=== PATIENT | female | born 1980 | race Caucasian/White ===

== ENCOUNTER 2018-05-18 21:22 | Emergency (ER) | payer OTHER, SELFPAY ==
[2018-05-18 21:26] VITALS: BP 118/81; PULSE 91; RESP 18; TEMP 37.4; O2SAT 99; BMI 28.9
[2018-05-18 22:23] LABS: Add Manual Diff / Slide Review NO; Basophils Percent Auto 0.8 % (0-2); Eosinophils Percent Auto 0.1 % (2-4); Hematocrit 38.7 % (36-46); Hemoglobin 13.2 g/dL (12.0-16.0); Lymphocytes Percent Auto 11.3 % (25-40); Mean Corpuscular HGB Conc 34.2 % (30-36); Mean Corpuscular Hemoglobin 29.9 PG (26-34); Mean Corpuscular Volume 87.4 fL (80-100); Monocytes Percent Auto 8.3 % (3-14); Neutrophils Absolute Auto 6100 /uL (3000-5900); Neutrophils Percent Auto 79.5 % (50-75); Platelet Count 328 X10^3/uL (150-400); Red Blood Cell Count 4.43 X10^6/uL (4.0-5.2); Red Cell Distribution Width 12.8 % (11.6-14.8); White Blood Cell Count 7.6 X10^3/uL (4.5-11.0)
[2018-05-18] MEDS: diphenhydrAMINE 50 MG/ML VIAL 25 MG IV (22:24)
[2018-05-18] MEDS: DEXAMETHASONE 10 MG/ML VIAL IV (22:24)
[2018-05-18] MEDS: KETOROLAC 60 MG/2 ML VIAL 15 MG IV (22:24)
[2018-05-18 22:25] VITALS: BP 118/81; PULSE 91
[2018-05-18] MEDS: PROCHLORPERAZINE 10 MG/2 ML VIAL IV (22:25)
[2018-05-18] MEDS: SODIUM CHLORIDE 0.9% 1,000 ML 1000 ML IV (22:26)
[2018-05-18 22:37] LABS: BUN Creatinine Ratio 18.3 (6-22); Blood Urea Nitrogen 11 mg/dL (7-17); Calcium 9.4 mg/dL (8.4-10.2); Carbon Dioxide 26 mmol/L (22-32); Chloride 103 mmol/L (98-107); Estimated Glomerular Filt Rate > 60.0 mL/min (>60); Glucose 115 mg/dL (70-100); HEMOLYSIS < 15 (0-50); Potassium 3.9 mmol/L (3.4-5.1); Sodium 142 mmol/L (137-145)
[2018-05-18 23:00] LABS: Ketones (Beta-Hydroxybutyrate) 0.46 mmol/L (<0.27)
[2018-05-18 23:11] LABS: C-Reactive Protein Quant 12.8 mg/dL (<1.0)
[2018-05-18 23:28] VITALS: BP 113/71; PULSE 73; RESP 18; TEMP 36.9; O2SAT 97
[2018-05-19] MEDS: SODIUM CHLORIDE 0.9% 1,000 ML 1000 ML IV (00:18)
--- NOTE | 2018-05-19 00:28 | ED_ITS ---
HPI - Headache General Chief Complaint: Headache Stated Complaint: MIGRAINE Time Seen by Provider: 05/18/18 21:27 Source: patient and family Mode of arrival: ambulatory Limitations: no limitations History of Present Illness HPI Narrative: 38F with history of migraine presents with history of N/V for a few days and now has muscle aches and a severe headache. She denies fever at any point and denies headache. She has had no recent travel and denies any injury over exposure to ill persons. She denies use of antibiotics or exposure to bad food. She has had a poor appetite and therefore he has eaten very little and had little to drink over the past few days. This is her 3rd visit in the past few days under the circumstances. She 1st was seen by the walk-in clinic and was given the diagnosis of a nonspecific viral syndrome and encouraged to take Zofran and drink fluids. She followed up with her primary care provider whom quickly sent her to the emergency department at [facility]. She had a very thorough evaluation including IV fluids, lab work, head CT and lumbar puncture. Patient felt a bit better after therapies there and was sent home. Over the course of the day today her headache started getting worse and she took hydrocodone. Related Data Home Medications Medication Instructions Recorded Confirmed rizatriptan 10 mg tablet 10 mg PO ONCE 05/16/18 05/18/18 sumatriptan succinate PO .prn 05/16/18 05/16/18 Previous Rx's Medication Instructions Recorded naproxen [Naprosyn] 500 mg PO BID #60 tab 06/18/17 ondansetron 8 mg disintegrating 8 mg PO BID PRN #14 tab 05/16/18 tablet metoclopramide HCl [Reglan] 10 mg PO Q6H PRN #10 tab 05/19/18 Allergies Allergy/AdvReac Type Severity Reaction Status Date / Time No Known Allergies Allergy Uncoded 02/06/18 11:46 Review of Systems Review of Systems All systems reviewed & are unremarkable except as noted in HPI and below Constitutional Reports chills, Denies fever(s), Reports headache(s), Denies lethargy and Denies weakness Eyes Denies change in vision, Denies eye discharge, Denies irritation and Denies loss of vision ENT Ears, Nose, Mouth, and Throat: Denies change in voice, Reports headache(s), Denies neck pain and Denies sore throat Cardiovascular Denies chest pain, Denies irregular heart rhythm, Denies lightheadedness, Denies palpitations, Denies dyspnea, Denies dyspnea on exertion and Denies orthopnea Respiratory Denies cough, Denies dyspnea, Denies dyspnea on exertion and Denies wheezing Gastrointestinal Gastrointestinal: Denies abdominal pain, Denies change in bowel habits, Reports diarrhea, Reports nausea and Reports vomiting Genitourinary Denies hematuria, Denies flank pain, Denies urinary incontinence and Denies urinary urgency Musculoskeletal Denies neck pain Integumentary/Breasts Denies pruritus, Denies erythema, Denies rash and Denies wounds Neurologic Denies confusion, Reports headache(s), Denies loss of vision and Denies weakness Psychiatric Denies anxiety, Denies confusion, Denies depression, Denies homicidal ideation and Denies suicidal ideation Endocrine Denies palpitations Hematologic/Lymphatic Denies easy bruising Allergic/Immunologic Denies wheezing PFSH Social History Smoking Status: Never smoker Exam Narrative Exam Narrative: 38-year-old female obviously in pain, resting in a dark room Initial Vital Signs Initial Vital Signs: Vital Signs Temperature 99.4 F 05/18/18 21:26 Pulse Rate 91 H 05/18/18 21:26 Respiratory Rate 18 05/18/18 21:26 Blood Pressure 118/81 H 05/18/18 21:26 Pulse Oximetry 99 05/18/18 21:26 Const General: cooperative, well developed and in distress Nutritional Appearance: well nourished Orientation: alert, awake, oriented x3 and not confused [facility] Head: normocephalic and atraumatic Ears: external ears normal and TM's normal bilaterally Nose: external nose normal and No nasal discharge Face and sinus: sinuses nontender, face symmetric, no sinus tenderness and No dry mucous membranes Mouth: oral mucosae normal and moist mucous membranes Teeth and gingiva: dentition normal Throat: tonsils normal and uvula midline Eyes General: appearance normal, both eyes and all related structures Eyelids: eyelids normal Conjunctivae: conjunctivae normal Sclera: sclerae normal Pupils: PERRL EOM: EOM intact bilaterally Neck Neck: normal visual inspection, trachea midline, No lymphadenopathy, No midline deformity and No JVD Lymphatic: No lymphedema Resp Effort & Inspection: normal respiratory effort, able to speak in complete sentences, no respiratory distress and no use of accessory muscles Auscultation: clear to auscultation bilaterally, no rales, no rhonchi and no wheezes Cardio Rate: regular rate Rhythm: regular rhythm Heart Sounds: no click, no gallops, no murmurs and no rubs Pulses: normal peripheral pulses GI Inspection: non-distended Palpation: soft, no hepatosplenomegaly, No guarding, No pulsatile mass and No tender Auscultation: normal bowel sounds Back/Spine/Pelvis Back: No CVA tenderness Cervical Spine: cervical ROM normal and No pain with cervical ROM Thoracic/Lumbar Spine: thoracic and lumbar spine normal to inspection Skin General: no rashes or lesions noted, No jaundice and No petechiae Neuro General: alert, oriented x3, gait normal and no focal motor deficits Cranial Nerves: CN's II-XI intact bilaterally Speech: speech normal Gait: normal gait Motor: muscle tone normal throughout Sensory Exam: no sensory deficits noted Extrem General: full ROM, no clubbing, cyanosis or edema, no pedal edema and no calf tenderness Psych Appearance: well kempt Mental Status: mental status grossly normal Attitude: cooperative Thought Content: normal and suicidality Judgment: judgment good Course Orders Ordered: ED Orders 05/18/18 22:18 Basic Metabolic Panel Stat C-Reactive Protein Quant Stat Complete Blood Count AUTO DIFF Stat Ketones (Beta-Hydroxybutyrate) Stat Procalcitonin Stat 05/19/18 02:00 Influenza A and B by PCR Rapid Stat Discontinued Medications Dexamethasone (Decadron) 10 mg IV NOW ONE Stop: 05/18/18 22:02 Last Admin: 05/18/18 22:24 Dose: 10 mg Dihydroergotamine Mesylate (Dhe 45) 1 mg IV NOW ONE Stop: 05/19/18 00:35 Dihydroergotamine Mesylate (Dhe 45) 1 mg IV NOW ONE Stop: 05/19/18 00:52 Last Admin: 05/19/18 00:56 Dose: 1 mg Diphenhydramine HCl (Benadryl) 25 mg IV NOW ONE Stop: 05/18/18 22:02 Last Admin: 05/18/18 22:24 Dose: 25 mg Sodium Chloride (Normal Saline 0.9%) 1,000 mls @ 1,000 mls/hr IV BOLUS ONE Stop: 05/18/18 23:00 Last Infusion: 05/18/18 23:29 Dose: 0 mls/hr Admin: 05/18/18 22:26 Dose: 1,000 mls/hr Sodium Chloride (Normal Saline 0.9%) 1,000 mls @ 1,000 mls/hr IV BOLUS ONE Stop: 05/19/18 01:03 Last Infusion: 05/19/18 02:23 Dose: 0 mls/hr Admin: 05/19/18 00:18 Dose: 1,000 mls/hr Ketorolac Tromethamine (Toradol) 15 mg IV NOW ONE Stop: 05/18/18 22:02 Last Admin: 05/18/18 22:24 Dose: 15 mg Prochlorperazine (Compazine) 10 mg IV NOW ONE Stop: 05/18/18 22:02 Last Admin: 05/18/18 22:25 Dose: 10 mg Reevaluation(s) Reevaluation #1: patient has resolution of nausea, but pain is still 6/10. She is somnalent, but easily arousable. Will await her to wake up a bit before administering more meds. Reevaluation #2: Patient now asymptomatic after DHE, she is requesting discharge home, I asked that we wait a few more minutes for the flu Consultations Consultation #1: Labs and imaging sent over from [facility]. Head CT is unremarkable. CSF shows a traumatic tap with 22,000 RBCs and 45 white cells, CSF protein 43. No organisms seen on Gram stain. Culture pending. Vital Signs - 8 hr 05/18/18 21:26 05/18/18 22:25 05/18/18 23:28 Temperature 99.4 F 98.5 F Pulse Rate 91 H 91 H 73 Respiratory Rate 18 18 Blood Pressure 118/81 H 118/81 H Blood Pressure [Left Arm] 113/71 Pulse Oximetry 99 97 05/19/18 02:04 Temperature Pulse Rate 65 Respiratory Rate 18 Blood Pressure Blood Pressure [Left Arm] 114/64 Pulse Oximetry 98 MDM - Headache Lab Data Result diagrams: 05/18/18 22:18 05/18/18 22:18 Lab Results 05/18/18 05/18/18 05/18/18 Range/Units 22:18 22:18 22:18 WBC 7.6 (4.5-11.0) X10^3/uL RBC 4.43 (4.0-5.2) X10^6/uL Hgb 13.2 (12.0-16.0) g/dL Hct 38.7 (36-46) % MCV 87.4 (80-100) fL MCH 29.9 (26-34) PG MCHC 34.2 (30-36) % RDW 12.8 (11.6-14.8) % Plt Count 328 (150-400) X10^3/uL Neut % (Auto) 79.5 H (50-75) % Lymph % (Auto) 11.3 L (25-40) % [place] % (Auto) 8.3 (3-14) % Eos % (Auto) 0.1 L (2-4) % Baso % (Auto) 0.8 (0-2) % Neut # (Auto) 6100 H (3492-9073) /uL Sodium 142 (137-145) mmol/L Potassium 3.9 (3.4-5.1) mmol/L Chloride 103 (98-107) mmol/L Carbon Dioxide 26 (22-32) mmol/L BUN 11 (7-17) mg/dL Creatinine 0.60 (0.52-1.04) mg/dL Estimated GFR > 60.0 (>60) mL/min BUN/Creatinine Ratio 18.3 (6-22) Glucose 115 H (70-100) mg/dL Calcium 9.4 (8.4-10.2) mg/dL C-Reactive Protein 12.8 H (<1.0) mg/dL Procalcitonin 0.10 (<0.5) ng/mL Ketones (<0.27) mmol/L 05/18/18 Range/Units 22:18 WBC (4.5-11.0) X10^3/uL RBC (4.0-5.2) X10^6/uL Hgb (12.0-16.0) g/dL Hct (36-46) % MCV (80-100) fL MCH (26-34) PG MCHC (30-36) % RDW (11.6-14.8) % Plt Count (150-400) X10^3/uL Neut % (Auto) (50-75) % Lymph % (Auto) (25-40) % [place] % (Auto) (3-14) % Eos % (Auto) (2-4) % Baso % (Auto) (0-2) % Neut # (Auto) (3405-1155) /uL Sodium (137-145) mmol/L Potassium (3.4-5.1) mmol/L Chloride (98-107) mmol/L Carbon Dioxide (22-32) mmol/L BUN (7-17) mg/dL Creatinine (0.52-1.04) mg/dL Estimated GFR (>60) mL/min BUN/Creatinine Ratio (6-22) Glucose (70-100) mg/dL Calcium (8.4-10.2) mg/dL C-Reactive Protein (<1.0) mg/dL Procalcitonin (<0.5) ng/mL Ketones 0.46 H (<0.27) mmol/L MDM Narrative Medical decision making narrative: 38-year-old female presents with headache in the aftermath of nausea and vomiting. Her headache improved yesterday after [place] migraine therapies in a very thorough workup. She returns today with worsening headache in the aftermath of a lumbar puncture last night and the administration of narcotics today. There are multiple components likely contributing to her headache including the viral syndrome causing her vomiting and diarrhea, dehydration, lumbar puncture, opioids, Discharge Plan Departure Patient Disposition: Home, Self-Care Clinical Impression: Headache, Vomiting Instructions: DI for Headache Activity Restrictions/Additional Instructions: 1. Drink plenty of fluids with frequent small sips. 2. For the next 24 hours a clear liquid diet is advised. After that please employ a brat diet which would include bananas, rice, apples, toast. 3. Please take medications as directed. 4. Please follow-up with your doctor in the next 1-2 days. Call the office for an appointment. 5. Please return to the emergency Department for any worsening or persistent symptoms, such as increasing pain or fever. Prescriptions: New metoclopramide HCl [Reglan] 10 mg tablet 10 mg PO Q6H PRN (Reason: nausea and vomiting) Qty: 10 RF: 0 No Action sumatriptan succinate PO .prn RF: 0 rizatriptan 10 mg tablet 10 mg PO ONCE RF: 0 ondansetron [Zofran ODT] 8 mg tablet,disintegrating 8 mg PO BID PRN (Reason: nausea and vomiting) Qty: 14 RF: 0 naproxen [Naprosyn] 500 MG tablet 500 mg PO BID Qty: 60 RF: 1 Stand Alone Forms: Work/School Restrictions
[2018-05-19] MEDS: DIHYDROERGOTAMINE 1 MG/ML AMPUL IV (00:56)
[2018-05-19 02:04] VITALS: BP 114/64; PULSE 65; RESP 18; O2SAT 98
[2018-05-19 02:33] VITALS: BP 117/76; PULSE 63; RESP 18; O2SAT 98
[2018-05-19 02:34] LABS: Influenza A and B by PCR Rapid Negative (Negative)
== END 2018-05-19 02:57 | disposition home or self-care (01) ==
PROVIDERS: Emergency Provider Emergency Medicine; Family Provider Family Medicine
DX: R51 Headache (principal); R11.0 Nausea
CPT/HCPCS: 36591; 80048; 82009; 84145; 85025; 86140; 87400; 96361; 96374; 96375; 96376; 99284; J0780; J1100; J1110; J1200; J1885

== ENCOUNTER → 2018-08-06 15:00 | Outpatient (CLI) | payer OTHER, SELFPAY | PROVIDERS: Family Provider Family Medicine | DX: Z23 Encounter for immunization (principal) | CPT/HCPCS: 90471; 90686 ==

== ENCOUNTER → 2019-07-24 16:37 | Outpatient (CLI) | payer OTHER, SELFPAY | DX: Z23 Encounter for immunization (principal) | CPT/HCPCS: 90471; 90686 ==

== ENCOUNTER → 2020-09-14 | Outpatient (CLI) | payer OTHER, SELFPAY | PROVIDERS: Referring Provider Internal Medicine; Visit Provider Internal Medicine | DX: Z23 Encounter for immunization (principal) | CPT/HCPCS: 90471; 90686 ==

== ENCOUNTER → 2020-09-15 09:41 | Outpatient (CLI) | payer OTHER, SELFPAY ==
[2020-09-15 11:05] LABS: COVID19 -Nasal RAPID Negative (Negative)
== END ==
PROVIDERS: Visit Provider Physician Assistant
DX: Z20.828 Contact with and (suspected) exposure to other viral communicable diseases (principal)
CPT/HCPCS: 87635

== ENCOUNTER → 2020-11-04 15:20 | Outpatient (CLI) | payer OTHER, SELFPAY ==
[2020-11-04] MEDS: COVID-19 VACC(MODERNA-1)/PF 100 MCG/0.5 ML VIAL IM (15:26)
== END ==
PROVIDERS: PCP Internal Medicine; Visit Provider Internal Medicine
DX: Z23 Encounter for immunization (principal)
CPT/HCPCS: 0011A; 91301

== ENCOUNTER → 2020-12-10 15:39 | Outpatient (CLI) | payer OTHER, SELFPAY ==
[2020-12-10] MEDS: COVID-19 VACC #2, MRNA(MOD) 100 MCG/0.5 ML VIAL IM (15:44)
== END ==
PROVIDERS: PCP Internal Medicine; Visit Provider Internal Medicine
DX: Z23 Encounter for immunization (principal)
CPT/HCPCS: 0012A; 91301

== ENCOUNTER 2020-12-16 10:37 | Emergency (ER) | payer OTHER, SELFPAY ==
[2020-12-16] VITALS (7 sets, daily range): BP systolic 110–145; BP diastolic 56–83; PULSE 60–77; RESP 16–18; TEMP 36.8; O2SAT 96–100
--- NOTE | 2020-12-16 11:13 | ED.HA ---
HPI - Headache General Chief Complaint: Headache Stated Complaint: dizzy,nausea,weird in head Time Seen by Provider: 12/16/20 10:56 Source: patient Mode of arrival: Ambulatory Limitations: no limitations History of Present Illness HPI Narrative: Patient is a 40-year-old female history of migraine headaches presenting today with dizziness lightheadedness. 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 She felt extremely dizzy flushed and lightheaded. She denies any chest pain or heart palpitations. She saw some floaters in her eyes. She does have a history of migraine she states that this does not feel like migraine headache. In fact she has a very a dull mild headache at this time she feels a little bit nauseous. The lightheadedness lasted for about 10 minutes. She did not eat breakfast today but that is normal for she has 1 cup of coffee also normal for her. She overall is feeling little bit better no longer lightheaded. MD Complaint: headache Related Data Home Medications Medication Instructions Recorded Confirmed rizatriptan 10 mg tablet 10 mg PO ONCE 05/16/18 05/18/18 sumatriptan succinate PO .prn 05/16/18 05/16/18 sumatriptan succinate [Imitrex] 50 mg PO Q2-4H PRN 12/16/20 12/16/20 Previous Rx's Medication Instructions Recorded naproxen [Naprosyn] 500 mg PO BID #60 tab 06/18/17 ondansetron 8 mg disintegrating 8 mg PO BID PRN #14 tab 05/16/18 tablet metoclopramide HCl [Reglan] 10 mg PO Q6H PRN #10 tab 05/19/18 Allergies Allergy/AdvReac Type Severity Reaction Status Date / Time No Known Allergies Allergy Verified 12/16/20 11:22 Review of Systems Review of Systems ROS Unobtainable: All systems reviewed & are unremarkable except as noted in HPI and below Constitutional Constitutional: Denies chills, Denies fever(s), Denies lethargy and Denies weakness Eyes Eyes: Denies blurry vision, Denies change in vision, Denies diplopia, Reports floaters and Denies irritation Cardiovascular Cardiovascular: Denies chest pain, Denies irregular heart rhythm, Reports lightheadedness, Denies palpitations, Denies dyspnea, Denies dyspnea on exertion and Denies orthopnea Respiratory Respiratory: Denies cough, Denies dyspnea, Denies dyspnea on exertion and Denies wheezing Gastrointestinal Gastrointestinal: Denies abdominal pain, Denies change in bowel habits, Denies diarrhea, Denies nausea and Denies vomiting Musculoskeletal Musculoskeletal: Denies abnormal gait, Denies back pain and Denies radiating pain into limb Integumentary/Breasts Skin/Breast: Denies pruritus, Denies erythema, Denies rash and Denies wounds Neurologic Neurologic: Denies abnormal gait, Denies confusion and Denies weakness Psychiatric Psychiatric: Denies anxiety, Denies confusion, Denies depression, Denies homicidal ideation and Denies suicidal ideation Endocrine Endocrine: Denies palpitations Allergic/Immunologic Allergic/Immunologic: Denies wheezing Patient History Medical History Migraine Social History Smoking Status: Never smoker Smoking Status: Never smoker alcohol intake frequency: holidays/special occasions only Substance Use Type: does not use Exam Initial Vital Signs Initial Vital Signs: Vital Signs Temperature 98.2 F 12/16/20 10:55 Pulse Rate 77 12/16/20 10:55 Respiratory Rate 16 12/16/20 10:55 Blood Pressure 145/83 H 12/16/20 10:55 Pulse Oximetry 100 12/16/20 10:55 GENERAL: Well-appearing, well-nourished and in no acute distress. HEENT: Head atraumatic,EOMI, pupils reactive, face symmetric, moist mucous membranes CARDIOVASCULAR: Regular rate and rhythm without murmurs, rubs or gallops. RESPIRATORY: Breath sounds equal bilaterally, no wheezes rales or rhonchi. ABDOMEN: Soft, nontender. Normoactive bowel sounds all 4 quadrants. No guarding or rebound. EXTREMITIES: Normal range of motion, no clubbing or edema. Neurovascularly intact NEUROLOGICAL: Alert and oriented x4.Normal gait and speech. Cranial nerves II through XII grossly intact. Good [id number], good [id number], strength equal bilaterally, no dysarthria or aphasia, sensation in tact to soft touch bilaterally, no visual changes, no facial droop SKIN: Warm, dry, no laceration, no petechiae, no rashes or lesions. Scores NIH Stroke Scale Level of Conciousness: Alert, keenly responsive Ask month/age: Answers both questions correctly. Open/close eyes, close hand: Performs both tasks correctly Best gaze horizontal: Normal Visual guan: No visual loss Facial palsy: Normal symetrical movement Left arm drift: No drift for full 10 sec Right arm drift: No drift for full 10 sec Left leg drift: No drift for full 5 sec Right leg drift: No drift for full 5 sec Limb ataxia: Absent Sensory on face/arms/legs: Normal, no sensory loss Best language: No aphasia, normal Dysarthria: Normal Extinction or inattention: No abnormality Total NIH Stroke scale score: 0 Course Orders Ordered: ED Orders 12/16/20 10:57 EKG-12 Lead Stat 12/16/20 11:31 Complete Blood Count AUTO DIFF Stat Comprehensive Metabolic Panel Stat Troponin & CK Cardiac Panel Stat Discontinued Medications Sodium Chloride (Normal Saline 0.9%) 1,000 mls @ 1,000 mls/hr IV BOLUS ONE Stop: 12/16/20 12:17 Last Infusion: 12/16/20 13:20 Dose: 0 mls/hr Documented by: Admin: 12/16/20 11:48 Dose: 1,000 mls/hr Documented by: AGATHA Ketorolac Tromethamine (Ketorolac 60 Mg/2 Ml Vial) 15 mg IV NOW ONE Stop: 12/16/20 11:19 Last Admin: 12/16/20 11:47 Dose: 15 mg Documented by: AGATHA Ondansetron HCl (Ondansetron 4 Mg/2 Ml Inj) 4 mg IV NOW ONE Stop: 12/16/20 11:19 Last Admin: 12/16/20 11:48 Dose: 4 mg Documented by: AGATHA Vital Signs Vital signs: Vital Signs - 8 hr 12/16/20 11:43 12/16/20 11:51 12/16/20 11:52 Pulse Rate 60 Pulse Rate [Orthostatic Lying] 63 Pulse Rate [Orthostatic Sitting] 60 Pulse Rate [Orthostatic Standing] 63 Respiratory Rate 18 Blood Pressure 114/63 Blood Pressure [Orthostatic Lying] 112/65 Blood Pressure [Orthostatic Sitting] 127/69 Blood Pressure [Orthostatic Standing] 120/78 Pulse Oximetry 99 12/16/20 12:00 12/16/20 12:30 12/16/20 13:00 Pulse Rate 62 64 65 Pulse Rate [Orthostatic Lying] Pulse Rate [Orthostatic Sitting] Pulse Rate [Orthostatic Standing] Respiratory Rate 17 17 18 Blood Pressure 110/58 L 112/59 L 111/56 L Blood Pressure [Orthostatic Lying] Blood Pressure [Orthostatic Sitting] Blood Pressure [Orthostatic Standing] Pulse Oximetry 97 96 98 MDM - Headache Lab Data Attestation: I reviewed the patient's lab results. Result diagrams: 12/16/20 11:31 12/16/20 11:31 Labs: Lab Results 12/16/20 12/16/20 Range/Units 11:31 11:31 WBC 5.1 (4.5-11.0) X10^3/uL RBC 4.30 (4.0-5.2) X10^6/uL Hgb 13.4 (12.0-16.0) g/dL Hct 38.7 (36-46) % MCV 89.9 (80-100) fL MCH 31.0 (26-34) PG MCHC 34.5 (30-36) % RDW 12.4 (11.6-14.8) % Plt Count 307 (150-400) X10^3/uL Neut % (Auto) 53.1 (50-75) % Lymph % (Auto) 29.5 (25-40) % [place] % (Auto) 8.4 (3-14) % Eos % (Auto) 7.6 H (2-4) % Baso % (Auto) 1.4 (0-2) % Neut # (Auto) 2700 (7245-8938) /uL Lymph # (Auto) 1500 (7620-7313) /uL [place] # (Auto) 400 (0-900) /uL Eos # (Auto) 400 (0-450) /uL Baso # (Auto) 100 (0-100) /uL Sodium 138 (137-145) mmol/L Potassium 3.8 (3.4-5.1) mmol/L Chloride 105 (98-107) mmol/L Carbon Dioxide 28 (22-32) mmol/L BUN 8 (7-17) mg/dL Creatinine 0.46 L (0.52-1.04) mg/dL Estimated GFR > 60.0 (>60) mL/min BUN/Creatinine Ratio 17.4 (6-22) Glucose 101 H (70-100) mg/dL Calcium 9.1 (8.4-10.2) mg/dL Total Bilirubin 0.3 (0.2-1.3) mg/dL AST 51 H (14-36) IU/L ALT 88 H (<35) IU/L Alkaline Phosphatase 90 (38-126) U/L Total Creatine Kinase 106 (30-135) U/L CK-MB (CK-2) 0.65 (<2.37) ng/mL CK-MB (CK-2) Rel Index 0.6 L (1.5-5.0) % Troponin I < 0.012 (0.01-0.034) ng/mL Total Protein 7.6 (6.3-8.2) g/dL Albumin 4.3 (3.5-5.0) g/dL Globulin 3.3 (1.7-4.1) g/dL Albumin/Globulin Ratio 1.3 (1.0-2.8) ECG Data Attestation: I personally reviewed and interpreted this ECG as follows: Interpretation: Normal sinus rhythm rate 65 p.r. interval 166 QRS [address] changes no T-wave inversions MDM Narrative Medical decision making narrative: Patient received a L of fluids overall feeling significantly better. His her heart rate was noted to go down to 49 is but not lower than that may be causing some of her lightheadedness. Overall feeling better after Toradol and IV fluids. Feels ready and able to go home. Discharge Plan Departure Patient Disposition: Home Clinical Impression: Vaso-vagal reaction Instructions: DI for Syncope in Adults (Fainting) Activity Restrictions/Additional Instructions: *You have been diagnosed with vasovagal reaction *What to do: Increase fluid intake today *Continue to take medications as directed *Follow up with your primary care provider in 2-3 days *Return to ER if you should have increasing dizziness, lightheadedness, chest pain, palpitations, passing out or any new, worsening or concerning symptoms Prescriptions: No Action sumatriptan succinate PO .prn RF: 0 rizatriptan 10 mg tablet 10 mg PO ONCE RF: 0 ondansetron [Zofran ODT] 8 mg tablet,disintegrating 8 mg PO BID PRN (Reason: nausea and vomiting) Qty: 14 RF: 0 naproxen [Naprosyn] 500 MG tablet 500 mg PO BID Qty: 60 RF: 1 metoclopramide HCl [Reglan] 10 mg tablet 10 mg PO Q6H PRN (Reason: nausea and vomiting) Qty: 10 RF: 0 sumatriptan succinate [Imitrex] 50 mg Tablet 50 mg PO Q2-4H PRN (Reason: Headache) RF: 0 Referrals: Beverley Baeza MD [Primary Care Provider] -
[2020-12-16 11:42] LABS: Add Manual Diff / Slide Review NO; Basophils Absolute Auto 100 /uL (0-100); Basophils Percent Auto 1.4 % (0-2); Eosinophils Absolute Auto 400 /uL (0-450); Eosinophils Percent Auto 7.6 % (2-4); Hematocrit 38.7 % (36-46); Hemoglobin 13.4 g/dL (12.0-16.0); Lymphocytes Absolute Auto 1500 /uL (1100-4500); Lymphocytes Percent Auto 29.5 % (25-40); Mean Corpuscular HGB Conc 34.5 % (30-36); Mean Corpuscular Volume 89.9 fL (80-100); Monocytes Absolute Auto 400 /uL (0-900); Monocytes Percent Auto 8.4 % (3-14); Neutrophils Absolute Auto 2700 /uL (1500-7000); Neutrophils Percent Auto 53.1 % (50-75); Platelet Count 307 X10^3/uL (150-400); Red Cell Distribution Width 12.4 % (11.6-14.8); White Blood Cell Count 5.1 X10^3/uL (4.5-11.0)
[2020-12-16] MEDS: KETOROLAC 60 MG/2 ML VIAL 15 MG IV (11:47)
[2020-12-16] MEDS: ONDANSETRON 4 MG/2 ML INJ IV (11:48)
[2020-12-16] MEDS: SODIUM CHLORIDE 0.9% 1,000 ML 1000 ML IV (11:48)
[2020-12-16 11:57] LABS: Alanine Aminotransferase 88 IU/L (<35); Albumin 4.3 g/dL (3.5-5.0); Albumin Globulin Ratio 1.3 (1.0-2.8); Alkaline Phosphatase 90 U/L (38-126); Aspartate Aminotransferase 51 IU/L (14-36); BUN Creatinine Ratio 17.4 (6-22); Bilirubin Total 0.3 mg/dL (0.2-1.3); Blood Urea Nitrogen 8 mg/dL (7-17); Calcium 9.1 mg/dL (8.4-10.2); Carbon Dioxide 28 mmol/L (22-32); Chloride 105 mmol/L (98-107); Creatine Kinase 106 U/L (30-135); Estimated Glomerular Filt Rate > 60.0 mL/min (>60); Globulin 3.3 g/dL (1.7-4.1); Glucose 101 mg/dL (70-100); HEMOLYSIS < 15 (0-50); Potassium 3.8 mmol/L (3.4-5.1); Sodium 138 mmol/L (137-145); Total Protein 7.6 g/dL (6.3-8.2)
[2020-12-16 12:09] LABS: Troponin I < 0.012 ng/mL (0.01-0.034)
[2020-12-16 12:12] LABS: CKMB % Relative Index 0.6 % (1.5-5.0); Creatine Kinase MB 0.65 ng/mL (<2.37)
--- NOTE | 2020-12-16 13:09 | PC.NURSE ---
Pt did well ambulating around department. No dizziness
== END 2020-12-16 13:21 | disposition home or self-care (01) ==
PROVIDERS: Emergency Provider Emergency Medicine; PCP Family Medicine
DX: R55 Syncope and collapse (principal); R51.9 Headache, unspecified; R11.0 Nausea
CPT/HCPCS: 36415; 80053; 82550; 82553; 84484; 85025; 93005; 93010; 96361; 96374; 96375; 99281; 99284; J1885; J2405

== ENCOUNTER → 2021-01-25 07:53 | Outpatient (CLI) | payer OTHER, SELFPAY ==
[2021-01-25 10:38] LABS: Alanine Aminotransferase 65 IU/L (<35); Albumin 4.3 g/dL (3.5-5.0); Albumin Globulin Ratio 1.5 (1.0-2.8); Alkaline Phosphatase 89 U/L (38-126); Aspartate Aminotransferase 35 IU/L (14-36); BUN Creatinine Ratio 20.4 (6-22); Bilirubin Total 0.3 mg/dL (0.2-1.3); Bilirubin Unconjugated 0.2 mg/dL (0.0-1.1); Blood Urea Nitrogen 10 mg/dL (7-17); Calcium 9.6 mg/dL (8.4-10.2); Carbon Dioxide 26 mmol/L (22-32); Chloride 104 mmol/L (98-107); Cholesterol 250 mg/dL (140-199); Estimated Glomerular Filt Rate > 60.0 mL/min (>60); Globulin 2.9 g/dL (1.7-4.1); Glucose 105 mg/dL (70-100); HDL Cholesterol 37 mg/dL (40-60); HEMOLYSIS < 15 (0-50); LDL Cholesterol Calculated 168 mg/dL (<100); Potassium 3.9 mmol/L (3.4-5.1); Sodium 139 mmol/L (137-145); Total Protein 7.2 g/dL (6.3-8.2); Triglycerides 224 mg/dL (35-150)
== END ==
PROVIDERS: PCP Family Medicine; Referring Provider Family Medicine; Visit Provider Family Medicine
DX: E78.5 Hyperlipidemia, unspecified (principal); R73.01 Impaired fasting glucose
CPT/HCPCS: 36415; 80048; 80061; 80076

== ENCOUNTER → 2021-08-26 07:01 | Outpatient (CLI) | payer OTHER, SELFPAY ==
[2021-08-26 08:37] LABS: Albumin 4.4 g/dL (3.5-5.0); BUN Creatinine Ratio 15.1 (6-22); Blood Urea Nitrogen 8 mg/dL (7-17); Calcium 9.4 mg/dL (8.4-10.2); Carbon Dioxide 28 mmol/L (22-32); Chloride 104 mmol/L (98-107); Estimated Glomerular Filt Rate > 60.0 mL/min (>60); Glucose 99 mg/dL (70-100); HEMOLYSIS < 15 (0-50); Phosphorous 3.3 mg/dL (2.5-4.5); Sodium 140 mmol/L (137-145)
[2021-08-26 08:39] LABS: Hemoglobin A1C% w Est Avg Glu 5.2 % (4.0-6.0)
[2021-08-26 09:00] LABS: Free T4, Direct Thyroxine 1.38 ng/dL (0.78-2.19)
[2021-08-26 09:14] LABS: Thyroid Stimulating Hormone 1.41 uIU/mL (0.47-4.68)
[2021-08-26 22:26] LABS: Thyroid Peroxidase Antibodies 12 IU/mL (0-34)
[2021-08-27 08:11] LABS: Insulin Level Total 18.9 uIU/mL (2.6-24.9)
== END ==
PROVIDERS: PCP Naturopath; Referring Provider Naturopath; Visit Provider Naturopath
DX: E78.5 Hyperlipidemia, unspecified (principal); R94.5 Abnormal results of liver function studies; R53.83 Other fatigue; R73.9 Hyperglycemia, unspecified
CPT/HCPCS: 80069; 83036; 83525; 84439; 84443; 84481; 86376

== ENCOUNTER → 2021-09-02 10:33 | Outpatient (CLI) | payer OTHER, SELFPAY ==
[2021-09-02] MEDS: COVID-19 VACC #3, MRNA(MOD) 50 MCG/0.25 ML VIAL IM (10:40)
== END ==
PROVIDERS: PCP Naturopath; Visit Provider Internal Medicine
DX: Z23 Encounter for immunization (principal)
CPT/HCPCS: 0013A; 91301

== ENCOUNTER → 2021-09-15 15:32 | Outpatient (CLI) | payer OTHER, SELFPAY | PROVIDERS: PCP Naturopath; Referring Provider Internal Medicine; Visit Provider Internal Medicine | DX: Z23 Encounter for immunization (principal) | CPT/HCPCS: 90471; 90686 ==

== ENCOUNTER → 2021-12-15 14:31 | Outpatient (CLI) | payer OTHER, SELFPAY ==
--- NOTE | 2021-12-16 11:30 | DIET.CONS ---
Dietary Consultation Note Assessment: 41y F attending RD visit for help with high cholesterol wanting to start plant-based diet per reccs from her manager english. Pt came to visit downtrodden, can't believe her health is so poor, feels lazy and like she doesn't take care of herself and not feeling very motivated. To begin, asked pt to imagine where she wants to be health [place] in 1y: normalized cholesterol to lower risk of heart attack and stroke lose some weight, more like be fit and healthy not get short of breath with activities of daily living eating fresher and healthier foods with more cooking skills Pt commutes [address] work one [address] four days per week, T-F, she spends many evenings with 3yo granddaughter, sometimes having to leave right after work to make it home in time. Pt admits having nearly no cooking skills- does not know what roasting, broiling mean when cooking. Has always had heat and serve foods or would eat out. Pt has been experimenting with vegan diet, has been vegetarian before, loves cheese though does feel better when she doesn't eat it. Pt mostly switching meat and dairy for meat and dairy free substitutes. Pt understands these are likely ultraprocessed foods so not idea to eat on a daily basis. Pt does not like to work out, has never really exercised regularly, not super excited about the idea but knows its important. Pt has a DVD as well as chasidy pop (she does like to dance) which she has started, both are 30 minutes, they seem really long to her. Labs: TG 222 H, TC 245 H, LDL 170 H, HDL 31 L, AST 39 H, ALT 83 H Pt has coffee in morning, not doing so many sugary espressos like in the past but still using a lot of creamer SF or full-sugar. Often skips breakfast, instead eats breakfast at 10am break at work then has lunch around 1pm and leaves to go home 3:30pm. Now that she is trying to follow a vegan diet, she does not get take out on way home, sometimes will get cheezy bread from [employer] or a cheese and veggie pizza. Loves tacos. Nutrition Diagnosis: mixed hyperlipidemia and fatty liver r/t nutrition related knowledge deficit aeb pt with poor cooking skills, pt desires help increasing skills and knowledge to live healthier life, TG 222 H, TC 245 H, LDL 170 H, HDL 31 L, AST 39 H, ALT 83 H. Interventions: 1. To support success and terminal worker strategy, used motivational interviewing to help pt identify goals to work towards as pt came in dismotivated. Pt left visit motivated and excited knowing the process will likely be one step forward and two steps back. To set realistic expectations. 2. To support metabolic health, encouraged pt to follow mostly or totally plant based diet at least until labs regulate. Worked c pt extensively on product ideas, meal ideas for where she is now. [facility] pt continue using plant-based alternative products for now to support cholesterol levels but to diligently work towards increasing skill in cooking to eventually mostly crowd out those products towards a more whole food diet. Pt will try a few sheet fu meals on her days off to start increasing cooking skills. 3. Discussed role of exercise in health. Pt set goal to do 10 minutes of her workout videos/chasidy and/or 10 minutes walking on every day off to start. This way she feels benefit of successfully achieving goals with eventual progression to 150 minutes cardio and 2 strength training workouts each week. Monitoring/Evaluations: f/u in 4 weeks to continue education, motivational counseling, and problem solve barriers Electronically Signed by: Ting Napier 12/16/21 11:30 Clinical Dietitian [address] [id number]
== END ==
PROVIDERS: PCP Naturopath; Referring Provider Naturopath; Visit Provider Naturopath
DX: E78.2 Mixed hyperlipidemia (principal); K76.0 Fatty (change of) liver, not elsewhere classified; Z71.3 Dietary counseling and surveillance
CPT/HCPCS: 97802

== ENCOUNTER → 2022-07-28 15:28 | Outpatient (CLI) | payer OTHER, SELFPAY | PROVIDERS: PCP Naturopath; Referring Provider Internal Medicine; Visit Provider Internal Medicine | DX: Z23 Encounter for immunization (principal) | CPT/HCPCS: 90471; 90686 ==

== ENCOUNTER → 2025-04-02 12:17 | Outpatient (CLI) | payer OTHER, SELFPAY ==
[2025-04-02 13:10] LABS: Add Manual Diff / Slide Review NO; Basophils Absolute Auto 100 /uL (0-100); Basophils Percent Auto 1.5 % (0-2); Eosinophils Absolute Auto 100 /uL (0-450); Eosinophils Percent Auto 1.7 % (2-4); Hematocrit 39.9 % (36-46); Hemoglobin 13.7 g/dL (12.0-16.0); Lymphocytes Absolute Auto 1500 /uL (1100-4500); Lymphocytes Percent Auto 33.6 % (25-40); Mean Corpuscular HGB Conc 34.4 % (30-36); Mean Corpuscular Hemoglobin 31.4 PG (26-34); Mean Corpuscular Volume 91.1 fL (80-100); Monocytes Absolute Auto 300 /uL (0-900); Monocytes Percent Auto 6.6 % (3-14); Neutrophils Absolute Auto 2500 /uL (1500-7000); Neutrophils Percent Auto 56.6 % (50-75); Platelet Count 339 X10^3/uL (150-400); Red Blood Cell Count 4.38 X10^6/uL (4.0-5.2); Red Cell Distribution Width 13.2 % (11.6-14.8); White Blood Cell Count 4.5 X10^3/uL (4.5-11.0)
[2025-04-02 13:38] LABS: Alanine Aminotransferase 33 IU/L (<35); Albumin 4.7 g/dL (3.5-5.0); Albumin Globulin Ratio 1.6 (1.0-2.8); Alkaline Phosphatase 98 U/L (38-126); Aspartate Aminotransferase 26 IU/L (14-36); BUN Creatinine Ratio 17.5 (6-22); Bilirubin Total 0.5 mg/dL (0.2-1.3); Blood Urea Nitrogen 10 mg/dL (7-17); Calcium 9.6 mg/dL (8.4-10.2); Carbon Dioxide 22 mmol/L (22-32); Chloride 105 mmol/L (98-107); Cholesterol 237 mg/dL (140-199); Estimated Glomerular Filt Rate > 60 mL/min (>60); Glucose 108 mg/dL (70-99); HDL Cholesterol 36 mg/dL (40-60); HEMOLYSIS < 15 (0-50); LDL Cholesterol Calculated 161 mg/dL (<100); Potassium 4.3 mmol/L (3.4-5.1); Sodium 140 mmol/L (137-145); Total Protein 7.7 g/dL (6.3-8.2); Triglycerides 199 mg/dL (35-150)
[2025-04-02 14:07] LABS: Thyroid Stimulating Hormone 1.85 uIU/mL (0.47-4.68)
[2025-04-02 14:11] LABS: Ferritin 104 ng/mL (6-137)
== END ==
PROVIDERS: PCP Naturopath; Referring Provider Naturopath; Visit Provider Physician Assistant
DX: Z00.00 Encounter for general adult medical examination without abnormal findings (principal); E61.1 Iron deficiency; N92.0 Excessive and frequent menstruation with regular cycle
CPT/HCPCS: 36415; 80053; 80061; 82728; 84443; 85025